=== PATIENT | female | born 1985 | race Two or more races ===

== ENCOUNTER 2024-12-22 08:58 | Emergency (ER) | payer MEDICAID, SELFPAY ==
[2024-12-22 09:00] VITALS: BMI 29.5
[2024-12-22 09:46] VITALS: BP 117/81; PULSE 87; RESP 16; TEMP 37.2; O2SAT 97; BMI 27.9
[2024-12-22] MEDS: predniSONE 20 MG TABLET 60 MG PO (10:33)
[2024-12-22] MEDS: predniSONE 20 MG TABLET PO (11:12)
--- NOTE | 2024-12-22 11:40 | EDNOTE_ITS ---
ED General RME/HPI General Chief complaint: General Adult/Misc Complain Stated complaint: JOINT PAIN Time Seen by Provider: 12/22/24 09:33 Source: patient Arrival date/time: 12/22/24 08:58 This is a 39-year-old female who presents to the emergency department with complaints of joint pain to her digits reports her symptoms have been progressively worsening over 3 months. She does report that recently her PCP did labs and x-rays has a follow-up on Wednesday for those results. She does report has been using diclofenac gel for her pain however her pain worsened today prompting her ED visit today patient requesting pain relief or shock. Denies fever, chills no rigors no lethargy no swelling or infections signs Mode of arrival: ambulatory Limitations: no limitations Related Data Previous Rx's ?Medication ?Instructions ?Recorded prednisone 20 mg tablet 20 mg PO QDAY 5 days #5 tabs 12/22/24 Allergies Allergy/AdvReac Type Severity Reaction Status Date / Time No Known Allergies Allergy Verified 12/22/24 09:04 Review of Systems Review of Systems Systems Reviewed: All systems reviewed, normal except as documented Narrative Review of Systems: Gen: No fever, no chills, no weight loss EYES: No discharge, no visual changes, no pain HEENT: No ear pain, no congestion, no sore throat PULM: No shortness of breath, no cough, no congestion CV: No chest pain, no dyspnea on exertion, no palpitations GI: No nausea, no vomiting, no diarrhea, no pain, no constipation : No frequency, no urgency, no dysuria Musc/skel: Multiple joint pain, no back pain Skin: No rash Psyc: No hallucinations, no depression Heme/Lymph: No easy bleeding or bruising tendencies Neuro: No weakness, no headache ED Exam General Limitations: Present no limitations General appearance: Present alert and in no apparent distress Head Head exam: Present atraumatic Eye Eye exam: Present normal appearance, PERRL and EOMI ENT ENT exam: Present normal exam, normal oropharynx and mucous membranes moist Neck Neck exam: Present normal inspection, full ROM and trachea midline Chest Chest inspection: Present normal inspection and symmetric chest wall rise Respiratory Respiratory exam: Present normal lung sounds bilaterally Cardiovascular Cardiovascular exam: Present regular rate, normal rhythm and normal heart sounds Abdominal Exam Abdominal exam: Present soft and normal bowel sounds Extremities Exam Extremities exam: Present normal inspection and full ROM Back Exam Back exam: Present normal inspection and full ROM Neurological Exam Neurological exam: Present alert, oriented X3 and CN II-XII intact Psychiatric Psychiatric exam: Present normal affect and normal mood Skin Skin exam: Present warm, dry, intact and normal color Course Quality Measures none Orders Category Date Time Status predniSONE Med 12/22/24 11:06 Discontinued 20 mg PO X1 ONE predniSONE Med 12/22/24 09:54 Discontinued 60 mg PO X1 ONE Vital Signs Vital signs: Vital Signs Temperature 98.9 F 12/22/24 09:46 Pulse Rate 87 12/22/24 09:46 Respiratory Rate 16 12/22/24 09:46 Blood Pressure 117/81 12/22/24 09:46 Pulse Oximetry (%) 97 12/22/24 09:46 Oxygen Delivery Method Room Air 12/22/24 09:46 MDM Patient data External records reviewed:: [facility] previous records Clinical information provided by:: patient Social determinants that could affect healthcare access:: none Patient has the following chronic illnesses:: None How is presenting disease/condition affected by chronic disease/condition?: no chronic disease Evaluation data The following diagnostics were reviewed and interpreted by me:: other (specify) Lab and/or radiology exams considered but not ordered:: No patient just had x-rays couple days ago Interpretation Summary: Not applicable Medications Medications considered but not ordered:: No n Medication administrations:: Medication Administration History Discontinued Medications Prednisone (Prednisone 20 Mg Tablet) 60 mg PO X1 ONE Stop: 12/22/24 09:55 Last Admin: 12/22/24 10:33 Dose: 60 mg Documented By: ED Comments: Pt. dropped 1 tab, 20 mg wasted. Pt. took 40 mg PO. Prednisone (Prednisone 20 Mg Tablet) 20 mg PO X1 ONE Stop: 12/22/24 11:07 Last Admin: 12/22/24 11:12 Dose: 20 mg Documented By: ED All medications administered and effective Consultations Consultation(s) initiated? (list below): No Diagnosis Differential Diagnosis ED Complaint MDM: Arthralgias, arthritis, Most likely diagnosis given after review of the tests above:: Joint pain Admission Indicated Admission indicated?: not indicated Explain why admission is indicated or not indicated:: No Admission Request Was there a request for admission?: No Disposition Plan Disposition Plan: Discharge Discharge Attestation Discharge Attestation: The patient and all family members were given an opportunity to ask questions and understood the discharge instructions. Discharge instructions specifically effects, indications for sooner follow up or return to the emergency department, and the expected course of current diagnosis. Patient condition: Stable Medical Decision Making MDM Narrative MDM Narrative: 39-year-old healthy female presents emergency department with pain to digits for over 3 months. Requesting anti-inflammatory or pain medication until she sees her doctor on Wednesday. Advised I will put her on a short course of steroids keep her appointment on Wednesday. Patient's vital signs stable patient appears in no acute distress or chronically ill. No workup initiated today workup has been initiated outpatient can follow-up on Wednesday. Advised to return if there is any worsening symptoms or change in condition. Differential Diagnosis Differential Diagnosis: Arthralgias, arthritis, Discharge Plan Plan Patient Disposition: HOME (Self Care) Patient condition on transfer: Stable Prescriptions/Referrals Prescriptions/Med Rec: New prednisone 20 mg tablet 20 mg PO QDAY 5 Days Qty: 5 0RF Problem List Clinical Impression: Joint pain Patient/Caregiver Discharge Instructions Discharge Activity: activity as tolerated Education Materials: ED Arthralgia Additional Instructions: Please keep your appointments with your primary doctor. 1 dose of medication was given today. Medication for 5 days. Keep your appointment on Wednesday with your PCP Return to the emergency department if you have any worsening symptoms and condition. Print Language: Jamaican Stand Alone Forms: Molly Award Info., Patient Portal Info Letter PA/MELANIA Supervising Physician JENNIFER/MELANIA Supervising Physician: Dr Brasher
== END 2024-12-22 12:08 | disposition home or self-care (01) ==
LOC: SERX 11:45
PROVIDERS: Emergency Provider Emergency Medicine
DX: M25.50 Pain in unspecified joint (principal)
CPT/HCPCS: 99282; J7512